=== PATIENT | female | born 1980 | race Two or more races ===

== ENCOUNTER → 2023-08-29 | Outpatient (CLI) | payer OTHER | LOC: M WHC 07:56 | PROVIDERS: ATTEND Student in an Organized Health Care Education/Training Program | DX: N64.4 Mastodynia (principal); Z98.82 Breast implant status | CPT/HCPCS: 77066; G0279 ==

== ENCOUNTER → 2024-02-26 | Outpatient (CLI) | payer OTHER | LOC: M PLAIMG 06:54 | PROVIDERS: ATTEND Family Medicine | DX: E22.1 Hyperprolactinemia (principal) ==